=== PATIENT | male | born 1965 | race Two or more races ===

== ENCOUNTER 2021-02-25 15:20 | Inpatient (IN) | payer MEDICAID ==
[~2021-02-25] VITALS: Ht 170.2 cm; Wt 83.9 kg
[2021-02-25] MEDS ORDERED: [UNRECOGNIZED DRUG - OTHER] PO (15:40)
--- NOTE | 2021-02-25 15:40 | NUR ---
Dr Sorto evaluating the pt.
[2021-02-25] MEDS ORDERED: IV NORMAL SALINE 1000 ML BAG IV ONE (15:45)
[2021-02-25 16:04] LABS: *BLOOD, URINE NEGATIVE (NEGATIVE); *CLARITY,URINE CLEAR (CLEAR); *COLOR,URINE DARK YELLOW (YELLOW); *KETONES,URINE NEGATIVE (NEGATIVE); *UROBILINOGEN,URINE >=8.0 E.U./dl (NORMAL); LEUKOCYTE ESTERASE ,URINE NEGATIVE (NEGATIVE); NITRITE, URINE NEGATIVE (NEGATIVE); UGLUCOSE NEGATIVE (NEGATIVE)
[2021-02-25 16:05] LABS: *BILIRUBIN,URIN 1+ (NEGATIVE)
[2021-02-25 16:07] LABS: HEMATOCRIT 42.1 % (36.7-47.1); MEAN CORPUSCULAR HEMOGLOBIN 30.2 uug (23.8-33.4); MEAN CORPUSCULAR VOLUME 90.4 fL (73.0-96.2); PLATELET COUNT (AUTO) 196 K/uL (152-348)
[2021-02-25 16:12] LABS: BACTERIA,URINE FEW /HPF (NONE SEEN); SQUAMOUS EPITHELIAL CELL,UR FEW /HPF (NONE SEEN); URINE AMORPHOUS URATE FEW /HPF
[2021-02-25 16:15] LABS: CREATININE 0.9 mg/dL (0.6-1.3); POTASSIUM 3.8 mmol/L (3.5-5.1)
[2021-02-25 16:20] LABS: BILIRUBIN,DIRECT 0.7 mg/dL (0.0-0.2); BILIRUBIN,TOTAL 1.9 mg/dL (0.2-1.0); TOTAL PROTEIN, SERUM 8.3 g/dL (6.4-8.2)
--- NOTE | 2021-02-25 17:27 | NUR ---
Pt left ER for CT scan.
--- NOTE | 2021-02-25 17:38 | NUR ---
Pt back from CT, resting in bed.
--- NOTE | 2021-02-25 17:55 | NUR ---
STARR Diaz spoke to Dr Tian( Surgeon).
[2021-02-25] MEDS ORDERED: CEFTRIAXONE 2 G in IV DEXTROSE 5% 100 ML IV ONE (18:00)
[2021-02-25] MEDS ORDERED: METRONIDAZOLE 500 MG/NS 100 ML PIGGYBACK IV ONE (18:00)
--- NOTE | 2021-02-25 18:00 | NUR ---
Pt here for llq pain starting 2 days ago.
[2021-02-25] MEDS ORDERED: METRONIDAZOLE 500 MG/NS 100ML 100 ML IV ONE (18:04)
[2021-02-25] MEDS ORDERED: CEFTRIAXONE 1 G VIAL ONE (18:04)
[2021-02-25] MEDS ORDERED: CEFTRIAXONE /D5W 50ML IVPB **ER PYXIS IV ONE (18:04)
[2021-02-25] MEDS ORDERED: ONDANSETRON 4 MG/2 ML VIAL IV PRN (19:00)
[2021-02-25] MEDS ORDERED: MORPHINE SULFATE 2 MG/1 ML DISP.SYRIN IV PRN (19:00)
--- NOTE | 2021-02-25 19:00 | NUR ---
Called for bed, will be room 302
--- NOTE | 2021-02-25 19:15 | NUR ---
Pt. is resting in bed, no signs of distress. Pt. states his pain is minimal at this time. Will continue to monitor.
--- NOTE | 2021-02-25 20:03 | NUR ---
Gave report to CANDELARIO Quinn.
--- NOTE | 2021-02-25 20:20 | NUR ---
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 PATIENT ON TELE MONITOR SINUS RHYTHM. PATIENT AND FAMILY EXPRESSED THAT THE PATIENT DOES NOT WANT BLOOD TRANSFUSION DUE YAZDANISM BELIEF, EXPLAINED TO FAMILY AND PATIENT THAT, MOST HEALTH CARE WORKERS SUCH RNMD, ARE WELL AWARE OF [employer] WITNESS PRACTICES THAT "NO BLOOD TRANSFUSION". FAMILY PROVIDED A COPY OF PAPER WORK FROM [employer] REGARDING NO BLOOD PRACTICES, COPIES OF PAPER WAS PLACED AT THE CHARGE, NOTIFY PLANT PACKER. CONT TO MONITOR.
[2021-02-25 20:30] VITALS: BP 139/79
[2021-02-25] MEDS: IV D5 1/2 NS 1000 ML 1,000 ML IV PRN (20:52)
[2021-02-25] MEDS ORDERED: PIPERACILLIN SODIUM/TAZOBACTAM 3.375 G in IV DEXTROSE 5% 50 ML IV SCH (22:00)
[2021-02-25] MEDS ORDERED: FLUCONAZOLE 200 MG/NS 100ML IV 200 MG in PREMIXED 1 EACH IV SCH (22:00)
[2021-02-25] MEDS ORDERED: FLUCONAZOLE 200 MG/100 ML PIGGYBACK ONE (22:55)
[2021-02-25] MEDS ORDERED: PIPERACILLIN/TAZOBACTAM/D5W 100 ML IV ONE (22:55)
[2021-02-25] MEDS: PIPERACILLIN SODIUM/TAZOBACTAM 3.375 G in IV DEXTROSE 5% 50 ML IV SCH (22:55)
[2021-02-26] VITALS (8 sets, daily range): BP systolic 101–124; BP diastolic 63–74
--- NOTE | 2021-02-26 01:14 | NUR ---
PATIENT HAS LOW GRADE TEMP 99.8 GIVEN COOLING MEASURES, CONT TO MONITOR.
--- NOTE | 2021-02-26 02:11 | NUR ---
Notify Debi Diaz that patient has 101.2 temp, with order.
[2021-02-26] MEDS: PIPERACILLIN SODIUM/TAZOBACTAM 3.375 G in IV DEXTROSE 5% 50 ML IV SCH (04:56)
[2021-02-26] MEDS ORDERED: METRONIDAZOLE 500 MG/NS 100ML 500 MG in PREMIXED 1 EACH IV SCH ×2 (06:00→17:00)
[2021-02-26 06:48] LABS: HEMATOCRIT 37.9 % (36.7-47.1); MEAN CORPUSCULAR HEMOGLOBIN 30.4 uug (23.8-33.4); PLATELET COUNT (AUTO) 169 K/uL (152-348)
--- NOTE | 2021-02-26 06:51 | NUR ---
PATIENT ALERT ORIENTED, NO SOB NO CHEST PAIN, DENIES PAIN, CURRENT TEMP 99.9 ORAL CONT COOLING MEASURES, REFUSED TYLENOL SUPP. PATIENT TELE MONITOR SINUS RHYTHM AT THIS TIME. PATIENT REMAIN NPO AT THIS TIME, CONT TO MONITOR.
[2021-02-26 06:59] LABS: BILIRUBIN,TOTAL 1.2 mg/dL (0.2-1.0); CREATININE 0.9 mg/dL (0.6-1.3); MAGNESIUM 2.3 mg/dL (1.8-2.4); PHOSPHOROUS 1.6 mg/dL (2.5-4.9); TOTAL PROTEIN, SERUM 6.9 g/dL (6.4-8.2)
[2021-02-26 07:06] LABS: THYROID STIMULATING HORMONE 1.858 mIU/mL (0.358-3.740)
--- NOTE | 2021-02-26 07:10 | NUR ---
Patient received in bed, alert and oriented x4 with at bedside. Patient is aware of procedure with Dr. Tian this morning at 7:30 AM. Consent is signed. Patient is on RA with no SOB or difficulties breathing. No acute distress noted at this time. Right FA IV is intact and running IVF at 75 mL/h as ordered. Personal belongings and call light within easy reach. Will continue to monitor.
[2021-02-26] MEDS ORDERED: MIDAZOLAM HCL 2 MG/2 ML VIAL ONE (07:15)
[2021-02-26] MEDS ORDERED: FENTANYL CITRATE 250 MCG/5 ML AMPUL ONE (07:15)
[2021-02-26] MEDS ORDERED: CLINDAMYCIN PHOSPHATE 600 MG/4 ML VIAL ONE (07:16)
[2021-02-26] MEDS ORDERED: ROCURONIUM BROMIDE 50 MG/5 ML VIAL ONE (07:17)
[2021-02-26] MEDS ORDERED: HYDROMORPHONE 2 MG/1 ML DISP.SYRIN ONE (07:17)
--- NOTE | 2021-02-26 07:30 | NUR ---
Patient taken to OR via wheelchair.
[2021-02-26] MEDS ORDERED: BUPIVACAINE/EPI PF 0.25% 30 ML VIAL ONE (08:13)
[2021-02-26] MEDS ORDERED: BUPIVACAINE 0.25% 30 ML VIAL ONE (08:13)
[2021-02-26] MEDS ORDERED: PROPOFOL 200 MG/20 ML BOTTLE IV ONE (08:44)
[2021-02-26] MEDS ORDERED: METOCLOPRAMIDE HCL 10 MG/2 ML VIAL IV ONE (08:44)
[2021-02-26] MEDS ORDERED: GLYCOPYRROLATE 0.2 MG/ML VIAL IJ ONE (08:44)
[2021-02-26] MEDS ORDERED: NALOXONE HCL 0.4 MG/ML AMPUL IM ONE (08:44)
[2021-02-26] MEDS ORDERED: SEVOFLURANE 250 ML BOTTLE IH ONE (08:44)
[2021-02-26] MEDS ORDERED: ONDANSETRON 4 MG/2 ML VIAL IV ONE (08:44)
[2021-02-26] MEDS ORDERED: NEOSTIGMINE METHYLSULFATE 10 MG/10 ML VIAL IV ONE (08:44)
[2021-02-26] MEDS ORDERED: LIDOCAINE-MPF 2% 5 ML VIAL IJ ONE (08:44)
[2021-02-26] MEDS ORDERED: CEFAZOLIN 1 G VIAL IM ONE (08:44)
[2021-02-26] MEDS: PANTOPRAZOLE SODIUM 40 MG VIAL IV SCH (09:00)
[2021-02-26] MEDS ORDERED: PANTOPRAZOLE SODIUM IV 40 MG in IV DEXTROSE 5% 100 ML IV SCH (09:00)
[2021-02-26] MEDS ORDERED: MORPHINE SULFATE 2 MG/1 ML DISP.SYRIN IV PRN (09:15)
[2021-02-26] MEDS ORDERED: METRONIDAZOLE 500 MG/NS 100ML 500 MG in PREMIXED 1 EACH IV ONE (09:30)
[2021-02-26] MEDS ORDERED: SODIUM PHOSPHATE MM 7.5 MMOL in IV NORMAL SALINE 100 ML IV ONE (12:00)
--- NOTE | 2021-02-26 12:10 | NUR ---
Patient back on the floor from the OR. No complaints of pain or discomforts at this time. No acute distress noted. Patient on RA with no SOB or difficulties breathing with oxygen saturation of 97%. LARISSA drain in place. Abdominal dressings are clean dry and intact. Patient placed back on IVF as ordered. at bedside. Personal belongings and call light within easy reach. Will continue to monitor.
[2021-02-26] MEDS ORDERED: PIPERACILLIN SODIUM/TAZOBACTAM 3.375 G in IV DEXTROSE 5% 100 ML IV SCH (14:00)
[2021-02-26] MEDS ORDERED: CEFAZOLIN 1 G in IV DEXTROSE 5% 50 ML IV SCH (16:00)
[2021-02-26] MEDS: PIPERACILLIN SODIUM/TAZOBACTAM 3.375 G in IV DEXTROSE 5% 100 ML IV SCH (16:19)
[2021-02-26] MEDS: IV D5 1/2 NS 1000 ML 1,000 ML IV PRN (18:04)
[2021-02-26] MEDS ORDERED: CEFTRIAXONE 1 G in IV DEXTROSE 5% 50 ML IV SCH (19:00)
--- NOTE | 2021-02-26 19:00 | NUR ---
RECD PT IN BED, ALERT ORIENTED,NO DISTRESS NOTED,VITAL SIGNS W/I NORMAL LIMITS.LARISSA DRAIN IN P[LACE, PT S/P LAPAROSCOPIC LYSIS OF ADHESIONS.NPO MAINTAINED AND OBSERVED, ORAL CARE DONE.IVF INFUSING WELL TO RT ARM.ON TELE,SR 90-94,OCC PVCS
[2021-02-27] VITALS: BP 101/60
--- NOTE | 2021-02-27 | NUR ---
VOIDED FREELY WELL, ABLE TO DANGLE IN BED,TEMP99.2, ICE PACKS ON AXILLARY AREAS APPLIED,ROOM TEMP ADJUSTED.,OFFERED TYL.ENOL SUPP. PT REFUSED.
[2021-02-27] MEDS: PIPERACILLIN SODIUM/TAZOBACTAM 3.375 G in IV DEXTROSE 5% 100 ML IV SCH ×3 (01:36→16:00)
[2021-02-27] MEDS: ACETAMINOPHEN 650 MG SUPP.RECT RC PRN ×2 (02:01→02:25)
--- NOTE | 2021-02-27 02:25 | NUR ---
TEMP RECHECKED 100.2 ORALLY, CONTINUE COOLING MEASURES.INSTRUCTIONS GIVEN POST OP FEVER,PT THEN AGREED TO GET TYLENOL SUPP. PT USING INCENTIVE SPIROMETER,NO DISTRESS NOTED, MEDICATED W/ MORPHINE SULFATE FOR PAIN AND RELIEF AFFORDED.
[2021-02-27 04:00] VITALS: BP 110/69
--- NOTE | 2021-02-27 04:21 | NUR ---
SLEPT AT SHORT INTERVALS.DVT PUMPS TOLERATED WELL.
[2021-02-27 07:25] LABS: HEMATOCRIT 36.4 % (36.7-47.1); MEAN CORPUSCULAR HEMOGLOBIN 30.5 uug (23.8-33.4); MEAN CORPUSCULAR VOLUME 91.5 fL (73.0-96.2); PLATELET COUNT (AUTO) 196 K/uL (152-348)
--- NOTE | 2021-02-27 07:40 | NUR ---
dr moser in and ordered clear liquids for pt.
[2021-02-27 07:50] LABS: CREATININE 0.9 mg/dL (0.6-1.3); PHOSPHOROUS 2.2 mg/dL (2.5-4.9)
[2021-02-27] MEDS: PANTOPRAZOLE SODIUM 40 MG VIAL IV SCH (08:55)
[2021-02-27] MEDS: IV D5 1/2 NS 1000 ML 1,000 ML IV PRN (11:21)
[2021-02-27] MEDS ORDERED: NEUTRA PHOS PACKET PO ONE (11:30)
[2021-02-27 11:56] VITALS: BP 123/69
[2021-02-27 16:44] VITALS: BP 122/70
[2021-02-27 20:00] VITALS: BP 124/65
[2021-02-28] VITALS: BP 120/71
[2021-02-28] MEDS ORDERED: ACETAMINOPHEN 325 MG TABLET PO PRN (00:15)
--- NOTE | 2021-02-28 01:29 | NUR ---
Patient received in bed, [id number], No acute distress noted at this time. VSS. Temp 99.6, administered Tylenol. Patient is on RA with no SOB or difficulties breathing. Denies any pain/ discomfort. Right FA IV is intact and running IVF at 75 mL/h as ordered. Antibiotics infusing, no adverse reaction noted. LARISSA drain in place, 30cc of drainage emptied. Abdominal dressing clean, dry and intact, nos/s of infection noted. Safety measures maintained. Personal belongings and call light within easy reach. Will continue to monitor.
[2021-02-28 04:00] VITALS: BP 94/55
[2021-02-28 06:14] LABS: HEMATOCRIT 35.3 % (36.7-47.1); MEAN CORPUSCULAR HEMOGLOBIN 30.6 uug (23.8-33.4); MEAN CORPUSCULAR VOLUME 91.3 fL (73.0-96.2); PLATELET COUNT (AUTO) 227 K/uL (152-348)
[2021-02-28 06:48] LABS: CREATININE 0.9 mg/dL (0.6-1.3); PHOSPHOROUS 2.6 mg/dL (2.5-4.9); POTASSIUM 3.9 mmol/L (3.5-5.1)
--- NOTE | 2021-02-28 07:30 | NUR ---
RECEIVED PATIENT IN BED AWAKE ALERT AND ORIENTED DENIES PAIN OR DISCOMFORTS AT THIS TIME ON ROOM AIR WITH NO SHORTNESS OF BREATH IVF ORDERED WITH IV ATB WITH NO ADVERSE OR ALLERGIC REACTIONS AT THIS TIME HE HAS 3 SURGICAL SITES ON HIS ABDOMEN WITH LARISSA SITE WITH DRESSINGS INTACT LARISSA WITH BLOODY DRAINAGE CALL LIGHTS AND PERSONAL BELONGINGS ARE WITHIN EASY REACH MADE COMFORTABLE AND WILL CONTINUE TO OBSERVE.
[2021-02-28] MEDS: IV D5 1/2 NS 1000 ML 1,000 ML IV PRN (07:56)
[2021-02-28] MEDS: PIPERACILLIN SODIUM/TAZOBACTAM 3.375 G in IV DEXTROSE 5% 100 ML IV SCH ×3 (08:18→16:30)
[2021-02-28] MEDS: PANTOPRAZOLE SODIUM 40 MG VIAL IV SCH (08:19)
--- NOTE | 2021-02-28 10:45 | NUR ---
PATIENT SEEN AND EXAMINED BY DR XIE WITH ORDER TO ADVANCE TO FULL LIQUIDS TODAY AND D/C PLANNING FOR TOMORROW.PATIENT AWARE.
[2021-02-28 11:50] VITALS: BP 121/70
--- NOTE | 2021-02-28 14:53 | NUR ---
PATIENT TOLERATED FULL LIQUIDS DIET ORDERED AND STATED THAT HE HAD A BOWEL MOVEMENT TODAY LARISSA REMAINS INTACT.
[2021-02-28 15:27] VITALS: BP 119/75
[2021-02-28 20:00] VITALS: BP 121/77
[2021-03-01 00:31] VITALS: BP 136/82
[2021-03-01 05:00] VITALS: BP 130/72
--- NOTE | 2021-03-01 05:18 | NUR ---
UNEVENTFUL NOC, LOOKING FORWARD TO DC PLANNING PROCESS.
[2021-03-01] MEDS ORDERED: PANTOPRAZOLE SODIUM 40 MG TABLET.DR PO SCH (07:00)
[2021-03-01 07:02] LABS: HEMATOCRIT 35.7 % (36.7-47.1); MEAN CORPUSCULAR HEMOGLOBIN 30.9 uug (23.8-33.4); MEAN CORPUSCULAR VOLUME 90.2 fL (73.0-96.2); PLATELET COUNT (AUTO) 277 K/uL (152-348)
[2021-03-01 07:14] LABS: CREATININE 0.8 mg/dL (0.6-1.3); POTASSIUM 3.9 mmol/L (3.5-5.1)
--- NOTE | 2021-03-01 07:58 | NUR ---
AFEBRILE THIS AM,LARISSA DRAIN IN PLACE, ONLY 5 ML DRAINAGE NOTED.VOIDED FREELY WELL.
[2021-03-01] MEDS: PIPERACILLIN SODIUM/TAZOBACTAM 3.375 G in IV DEXTROSE 5% 100 ML IV SCH ×2 (08:34)
--- NOTE | 2021-03-01 09:00 | NUR ---
PATIENT SEEN AND EXAMINED BY DR XIE AND THE PLAN IS TO DISCHARGE PATIENT TODAY PATIENT AWARE AWAITING FOR THE THE [facility]
[2021-03-01] MEDS ORDERED: ACET325T53 PO (11:43)
--- NOTE | 2021-03-01 11:45 | NUR ---
PATIENT SEEN BY TEA ANDERSON WITH ORDER TO DISCHARGE PATIENT HOME TODAY ALSO STATED TO CHANGE DIET TO SOFT PATIENT TO EAT AND TOLERATE DIET BEFORE DISCHARGE PATIENT AWARE AND STATED THAT HIS TEETEE WILL TAKE HIM HOME.
[2021-03-01 11:55] VITALS: BP 129/75
--- NOTE | 2021-03-01 14:00 | NUR ---
PATIENT IS BEING PREPPED FOR DISCHARGE TOLERATED DIET ORDERED.
--- NOTE | 2021-03-01 14:24 | NUR ---
PATIENT DISCHARGED PICKED UP BY HIS TEETEE IN SATISFACTORY CONDITION WITH DISCHARGE INSTRUCTIONS AND PRESCRIPTIONS AND PATIENT EDUCATED ON THE MAINTENANCE OF THE LARISSA EMPTYING ETC AND TAKING THE RECORD TO DR BENAVIDEZ OFFICE INSTRUCTED TO MAKE AN APPOINTMENT TO SEE DR XIE IN ONE WEEK FOR THE LARISSA REMOVAL 3 STAB SITES WITH DRESSINGS INTACT.NOTED THAT PATIENT HAS INFILTERATION OF HIS IVF ENCOURAGED TO ELEVATE HIS RIGHT ARM ON THE PILLOW WHEN HE GETS HOME.ALSO HE HAS A SMALL BLISTER VERY MINUTE ON HIS RIGHT ANTECUBITAL WHERE HIS HEPLOCK WAS TAPED COVERED WITH BAND AIDE AND HE WAS INSTRUCTED ON KEEPING IT CLEAN AND INTACT AND HE EXPRESSED UNDERSTANDING.TAKEN DOWN BY W/CHAIR IN SATISFACTORY CONDITION.
== END 2021-03-01 15:10 | disposition home or self-care (01) | DRG 224 ==
LOC: ER 15:20 → TELE3 20:05
PROVIDERS: ADMIT Nurse Practitioner Acute Care; ATTEND Nurse Practitioner Acute Care
PROC: 0DNN4ZZ Release Sigmoid Colon, Percutaneous Endoscopic Approach (ICD-10-PCS; principal; 2021-02-26)
PROC: 0W9G40Z Drainage of Peritoneal Cavity with Drainage Device, Percutaneous Endoscopic Approach (ICD-10-PCS; principal; 2021-02-26)
DX: K57.20 Diverticulitis of large intestine with perforation and abscess without bleeding (principal); E87.1 Hypo-osmolality and hyponatremia; K66.8 Other specified disorders of peritoneum; E86.1 Hypovolemia; D72.829 Elevated white blood cell count, unspecified; R74.01 Elevation of levels of liver transaminase levels; E78.5 Hyperlipidemia, unspecified; Z20.822 Contact with and (suspected) exposure to COVID-19; B96.20 Unspecified Escherichia coli [E. coli] as the cause of diseases classified elsewhere
CPT/HCPCS: 36415; 71045; 83690; 83735; 84100; 84443; 85025; 85730; 87040; 87070; 87077; 87086; A4663; C9113; G0378; J0690; J0696; J1170; J1450; J2250; J2270; J2310; J2405; J2543; J2765; J3010; J3490; J7030; J7060